=== PATIENT | male | born 2000 | race Hispanic/Latino ===

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

== ENCOUNTER 2021-07-02 13:00 | Emergency (ER) | payer SELFPAY ==
[2021-07-02] MEDS ORDERED: ONDANSETRON 4 MG/2 ML VIAL ONE (13:23)
[2021-07-02] MEDS ORDERED: NA CHLORIDE 0.9% 1,000 ML ONE (13:23)
[2021-07-02] MEDS ORDERED: MORPHINE 2 MG/ML SYR ONE (13:23)
[2021-07-02 13:42] LABS: Hematocrit 40.5 % (39.6-49.0); Lymphocytes % 28.3 % (15.3-44.8); MPV 7.5 fL (7.6-11.3); RBC Red Blood Cell Count 4.68 M/uL (4.33-5.43)
[2021-07-02 13:49] LABS: BUN Blood Urea Nitrogen 15 mg/dL (7-18); Bicarbonate 26 mmol/L (21-32); Glucose Level 95 mg/dL (74-106); Potassium 3.7 mmol/L (3.5-5.1); Sodium Level 140 mmol/L (136-145)
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
--- NOTE | 2021-07-02 16:30 | RAD REPORT ---
EXAM DESCRIPTION: RADNasal Bones07/02/2021 4:08 pm CLINICAL HISTORY: Nasal pain FINDINGS: An acute fracture is not visualized
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
[2021-07-02 17:09] VITALS: TEMP 98.9
[2021-07-02 17:13] VITALS: BP 119/61; O2SAT 100
== END 2021-07-02 17:03 | disposition home or self-care (01) ==
LOC: ER 13:00
DX: S06.0X9A Concussion with loss of consciousness of unspecified duration, initial encounter (principal); S00.33XA Contusion of nose, initial encounter; M54.2 Cervicalgia; M54.9 Dorsalgia, unspecified; V49.40XA Driver injured in collision with unspecified motor vehicles in traffic accident, initial encounter
CPT/HCPCS: 36415; 70160; 70450; 71260; 72125; 74177; 80048; 85025; 96361; 96374; 99284; J2270; J2405; J7030; Q9967